=== PATIENT | male | born 1995 | race Caucasian/White ===

== ENCOUNTER 2023-11-21 12:28 | Emergency (ER) | payer BC, SELFPAY ==
[2023-11-21 13:11] LABS: #Lymphocytes 1.1 thou/uL (1.20-3.40); #Monocytes 0.3 thou/uL (0.11-0.59); #Neutrophils 3.8 thou/uL (1.40-6.50); %Basophils 0.7 % (0.0-1.0); %Eosinophils 0.5 % (0.0-10.0); %Lymphocytes 21.2 % (21.0-51.0); %Monocytes 6.1 % (0.0-10.0); %Neutrophils 71.5 % (42.0-75.0); Hematocrit 48.5 % (42.0-52.0); Hemoglobin 16.3 g/dL (14.0-18.0); Mean Corpuscular HGB CONC 33.7 g/dL (32.0-36.0); Mean Corpuscular Hemoglobin 28.8 pg (27.0-31.0); Mean Corpuscular Volume 85.6 fl (78.0-98.0); Mean Platelet Volume 7.4 fL (7.4-10.4); Platelet Count 212 10x3/uL (130-400); Red Blood Cell (RBC) Count 5.67 mill/uL (4.70-6.10); White Blood Cell (WBC) Count 5.3 10x3/uL (4.8-10.8)
[2023-11-21 13:26] LABS: ALT (SGPT) 19 U/L (8-55); AST (SGOT) 15 U/L (5-34); Albumin 4.5 g/dL (3.5-5.0); Alkaline Phosphatase 61 U/L (40-110); Anion Gap 14 mmol/L (10-20); BUN (Urea Nitrogen) 13 mg/dL (8.9-20.6); Bilirubin, Total 0.7 mg/dL (0.2-1.2); Calc. Creatinine Clearance 0 mL/min (70-130); Carbon Dioxide 26 mmol/L (22-29); Chloride 104 mmol/L (98-107); Estimated GFR 89; Globulin 2.6 g/dL (2.4-3.5); Glucose 88 mg/dL (70-105); Lipase 24 U/L (8-78); Potassium 3.8 mmol/L (3.5-5.1); Protein, Total 7.1 g/dL (6.0-8.3); Sodium 140 mmol/L (136-145); Troponin I Less than 0.010 ng/mL (< 0.028)
== END 2023-11-21 14:07 | disposition home or self-care (01) ==
LOC: MADERS 12:28
DX: R07.9 Chest pain, unspecified (principal); I10 Essential (primary) hypertension
CPT/HCPCS: 71046; 80053; 83690; 84484; 85025; 93005; 94760

== ENCOUNTER 2023-12-14 22:47 | Emergency (ER) | payer BC ==
[2023-12-14 23:36] LABS: #Basophils 0.1 thou/uL (0.0-0.2); #Lymphocytes 1.5 thou/uL (1.20-3.40); #Monocytes 0.4 thou/uL (0.11-0.59); #Neutrophils 4.9 thou/uL (1.40-6.50); %Basophils 0.8 % (0.0-1.0); %Eosinophils 0.5 % (0.0-10.0); %Lymphocytes 22.1 % (21.0-51.0); %Monocytes 5.5 % (0.0-10.0); %Neutrophils 71.1 % (42.0-75.0); Hematocrit 46.8 % (42.0-52.0); Hemoglobin 15.9 g/dL (14.0-18.0); Mean Corpuscular HGB CONC 33.9 g/dL (32.0-36.0); Mean Corpuscular Hemoglobin 28.8 pg (27.0-31.0); Platelet Count 213 10x3/uL (130-400); RBC Distribution Width 10.8 % (11.5-14.5); Red Blood Cell (RBC) Count 5.51 mill/uL (4.70-6.10); White Blood Cell (WBC) Count 6.9 10x3/uL (4.8-10.8)
[2023-12-14 23:55] LABS: ALT (SGPT) 16 U/L (8-55); AST (SGOT) 15 U/L (5-34); Albumin 4.7 g/dL (3.5-5.0); Alkaline Phosphatase 61 U/L (40-110); Anion Gap 15 mmol/L (10-20); BUN (Urea Nitrogen) 11 mg/dL (8.9-20.6); Bilirubin, Total 0.7 mg/dL (0.2-1.2); Calc. Creatinine Clearance 0 mL/min (70-130); Calcium 9.6 mg/dL (7.8-10.44); Carbon Dioxide 25 mmol/L (22-29); Chloride 104 mmol/L (98-107); Estimated GFR 94; Globulin 2.1 g/dL (2.4-3.5); Glucose 105 mg/dL (70-105); Potassium 3.3 mmol/L (3.5-5.1); Protein, Total 6.8 g/dL (6.0-8.3); Sodium 141 mmol/L (136-145)
[2023-12-15 00:01] LABS: Troponin I Less than 0.010 ng/mL (< 0.028)
== END 2023-12-15 00:32 | disposition home or self-care (01) ==
LOC: MADERS 22:47
DX: I10 Essential (primary) hypertension (principal); Z55.6 Problems related to health literacy
CPT/HCPCS: 71045; 80053; 84484; 85025; 93005

== ENCOUNTER 2023-12-15 21:14 | Emergency (ER) | payer BC | END 2023-12-15 23:42 | disposition home or self-care (01) | LOC: MADERS 21:14 | DX: F43.0 Acute stress reaction (principal); I10 Essential (primary) hypertension; K21.9 Gastro-esophageal reflux disease without esophagitis | CPT/HCPCS: 71045; 80053; 84484; 85025; 93005 ==

== ENCOUNTER 2023-12-25 23:48 | Emergency (ER) | payer BC ==
[2023-12-26] MEDS ORDERED: Mag-Al Plus 1200/1200/120 MG (30 mL) UDCUP ONE (00:34)
[2023-12-26] MEDS ORDERED: Lidocaine 2% Viscous 100 ML BOTTLE ONE (00:34)
[2023-12-26 00:48] LABS: #Basophils 0.1 thou/uL (0.0-0.2); #Eosinphils 0.1 thou/uL (0.0-0.7); #Lymphocytes 2.1 thou/uL (1.20-3.40); #Monocytes 0.4 thou/uL (0.11-0.59); %Lymphocytes 31.9 % (21.0-51.0); %Neutrophils 60.2 % (42.0-75.0); Hematocrit 48.9 % (42.0-52.0); Hemoglobin 16.6 g/dL (14.0-18.0); Mean Corpuscular HGB CONC 33.9 g/dL (32.0-36.0); Mean Corpuscular Hemoglobin 28.9 pg (27.0-31.0); Mean Corpuscular Volume 85.3 fl (78.0-98.0); Mean Platelet Volume 8.2 fL (7.4-10.4); Platelet Count 229 10x3/uL (130-400); RBC Distribution Width 11.2 % (11.5-14.5); Red Blood Cell (RBC) Count 5.73 mill/uL (4.70-6.10); White Blood Cell (WBC) Count 6.7 10x3/uL (4.8-10.8)
[2023-12-26 01:08] LABS: Amphetamine Not Detected (NotDetected); Barbiturates Screen Not Detected (NotDetected); Benzodiazepine Screen Not Detected (NotDetected); Cocaine Metabolite Screen Not Detected (NotDetected); Methadone Not Detected (NotDetected); Methamphetamine Not Detected (NotDetected); Opiate Screen Not Detected (NotDetected); Oxycodone Screen Not Detected (NotDetected); Phencyclidine (PCP) Not Detected (NotDetected); THC/Cannabinoid Screen Not Detected (NotDetected); Tricyclic Screen Not Detected (NotDetected)
[2023-12-26] MEDS ORDERED: Ibuprofen 800 MG TAB ONE (01:10)
[2023-12-26 01:12] LABS: Anion Gap 14 mmol/L (10-20); BUN (Urea Nitrogen) 13 mg/dL (8.9-20.6); Calc. Creatinine Clearance 0 mL/min (70-130); Carbon Dioxide 24 mmol/L (22-29); Chloride 105 mmol/L (98-107); Potassium 3.8 mmol/L (3.5-5.1); Sodium 139 mmol/L (136-145)
[2023-12-26 01:13] LABS: ALT (SGPT) 14 U/L (8-55); AST (SGOT) 13 U/L (5-34); Albumin 4.6 g/dL (3.5-5.0); Alkaline Phosphatase 60 U/L (40-110); Bilirubin, Total 0.8 mg/dL (0.2-1.2); Calcium 9.4 mg/dL (7.8-10.44); Estimated GFR 92; Globulin 2.7 g/dL (2.4-3.5); Glucose 93 mg/dL (70-105); Lipase 35 U/L (8-78); Protein, Total 7.3 g/dL (6.0-8.3)
[2023-12-26 01:14] LABS: Troponin I Less than 0.010 ng/mL (< 0.028)
[2023-12-26 03:47] LABS: Troponin I Less than 0.010 ng/mL (< 0.028)
== END 2023-12-26 05:35 | disposition home or self-care (01) ==
LOC: MADERS 23:48
DX: R07.9 Chest pain, unspecified (principal); K21.9 Gastro-esophageal reflux disease without esophagitis; R20.2 Paresthesia of skin; I10 Essential (primary) hypertension
CPT/HCPCS: 36415; 71046; 80053; 80306; 83690; 84443; 84484; 85025; 85379; 93005; 94760

== ENCOUNTER 2025-06-07 13:01 | Emergency (ER) | payer BC | END 2025-06-07 14:15 | disposition home or self-care (01) | LOC: MADERS 13:01 | DX: S06.0X0A Concussion without loss of consciousness, initial encounter (principal); S19.9XXA Unspecified injury of neck, initial encounter; M62.838 Other muscle spasm; R20.2 Paresthesia of skin; I10 Essential (primary) hypertension; W22.8XXA Striking against or struck by other objects, initial encounter | CPT/HCPCS: 70450; 72125 ==

== ENCOUNTER 2025-06-27 14:40 | Emergency (ER) | payer BC | END 2025-06-27 16:15 | disposition home or self-care (01) | LOC: MADERS 14:40 | DX: S53.401A Unspecified sprain of right elbow, initial encounter (principal); I10 Essential (primary) hypertension; W22.8XXA Striking against or struck by other objects, initial encounter | CPT/HCPCS: 99283 ==